=== PATIENT | female | born 1955 | race Caucasian/White ===

== ENCOUNTER 2017-10-07 04:46 | Emergency (ER) | payer OTHER ==
[~2017-10-07] VITALS: Ht 165.1 cm; Wt 60.4 kg
[~2017-10-07 04:46] MED LIST: ASCORBIC ACID500 M3 PO; ASPIRIN EC325 MG PO; AUGMENTIN875 MG PO; DOCUSATE SODIU100 MG PO; FLORASTOR250 MG PO; NOHOMEMEDS; NORCO 5/3251 TABLET PO; TYLENOL PM1 CAPLET PO
[2017-10-07 04:48] VITALS: BP 182/86
[2017-10-07 05:25] LABS: CHLORIDE 102 mEq/L (99-109); POTASSIUM 3.8 mEq/L (3.7-5.4); SODIUM 140 mEq/L (136-147)
[2017-10-07 05:26] LABS: GLUCOSE 123 mg/dL (70-99)
[2017-10-07 05:30] LABS: CREATININE 0.7 mg/dL (0.6-1.3); GFR ESTIMATE (CALCULATED) > 59 mL/min/
[2017-10-07 05:31] LABS: UREA NITROGEN (BUN) 18 mg/dL (9-23)
[2017-10-07 05:32] LABS: HEMATOCRIT 42.6 % (36.0-46.0); HEMOGLOBIN 14.6 G/DL (11.9-15.5); MCH 31.9 PG (29.0-34.0); MCHC 34.3 G/DL (30.0-36.0); PLATELET COUNT 320 K/uL (156-360); RBC DIS.WIDTH-CV 11.6 % (11.8-14.6); RBC DIS.WIDTH-SD 39.4 % (39-53); RED BLOOD COUNT 4.58 M/uL (3.80-5.20); WHITE BLOOD COUNT 10.8 K/uL (4.1-10.2)
[2017-10-07 05:35] LABS: TROP-I INTERPRETATION NEGATIVE; TROPONIN-I < 0.01 ng/mL (0.0-0.30)
== END 2017-10-07 05:50 | disposition left against medical advice (07) ==
LOC: EME 04:46
DX: R07.9 Chest pain, unspecified (principal); M54.6 Pain in thoracic spine; Z53.21 Procedure and treatment not carried out due to patient leaving prior to being seen by health care provider
CPT/HCPCS: 71046; 80048; 84484; 85027; 93005